=== PATIENT | male | born 1965 | race Two or more races ===

== ENCOUNTER 2016-09-21 15:59 | Emergency (ER) | payer MEDICAID ==
[~2016-09-21] VITALS: Ht 167.6 cm; Wt 59.0 kg
[~2016-09-21 15:59] MED LIST: ACETAMINOPHEN325 M1 ORAL; AMBIEN5 MG ORAL; ATIVAN1 MG ORAL; BENADRYL25 MG ORAL; BENADRYL50 MG ORAL; CLONIDINE0.1 MG ORAL; DULCOLAX10 MG RC; FOLIC ACID1 MG ORAL; HALOPERIDOL0.5 MG ORAL; HALOPERIDOL1 MG ORAL; HEPARIN1000 UNIT/ SUBQ; ISOPTO CARPINE BOTH EYES; KEPPRA1000 MG ORAL; KEPPRA500 M4 ORAL; KEPPRA500 MG ORAL; LEXAPRO20 MG ORAL; MILK OF MA400 MG/51 ORAL; MOM30 ML ORAL; MULTIVITAMINS1 EAC2 ORAL; MYLANTA II30 ML GT; NEXIUM20 M1 ORAL; POLYETHYLENE GL17 GM ORAL; PROTONIX40 MG ORAL; RANITIDINE HCL150 MG ORAL; RESTORIL15 MG ORAL; RISPERDAL0.25 MG ORAL; RISPERDAL2 MG ORAL; RISPERIDONE0.5 MG PO; TYLENOL650 MG/20. ORAL; UNOBMED; VITAMIN B-1100 MG ORAL
[2016-09-21] MEDS ORDERED: LORazepam 1mg tab ORAL ONE (16:15)
[2016-09-21 16:27] VITALS: BP 139/70
[2016-09-21 16:29] LABS: BASOPHILS % (AUTO) 0.9 % (0.0-2.0); EOSINOPHILS % (AUTO) 0.2 % (0.0-3.0); LYMPHOCYTES % (AUTO) 13.8 % (20.0-45.0); MEAN CORPUSCULAR HEMOGLOBIN 31.5 PG (27.0-31.0); MEAN CORPUSCULAR HGB CONC 37.4 G/DL (32.0-36.0); MEAN CORPUSCULAR VOLUME 84 FL (80-99); MEAN PLATELET VOLUME 8.1 FL (6.5-10.1); NEUTROPHILS % (AUTO) 80.2 % (45.0-75.0); PLATELET COUNT 197 K/UL (150-450); RED CELL DISTRIBUTION WIDTH 11.6 % (11.6-14.8); WHITE BLOOD COUNT 9.1 K/UL (4.8-10.8)
[2016-09-21] MEDS ORDERED: Midazolam 2mg/2ml Inj IVP ONE (16:45)
[2016-09-21 16:49] LABS: ANION GAP 18 (5-15); CALCIUM 9.1 mg/dL (8.6-10.2); CARBON DIOXIDE 23 mEQ/L (20-30); CHLORIDE 97 mEQ/L (98-107); CREATININE 0.8 mg/dL (0.7-1.2); GLOMERULAR FILTRATION RATE > 60 mL/min (>60); HEMOLYSIS 139; POTASSIUM 4.5 mEQ/L (3.4-4.9); SODIUM 138 mEQ/L (135-145)
[2016-09-21 17:57] VITALS: BP 139/70
--- NOTE | 2016-09-22 21:38 | Emergency Room Report ---
History of Present Illness General Chief Complaint: Seizure Source: Patient Present Illness HPI Patient presents from nursing facility with complaints of seizure disorder Patient has a history of seizures And had a seizure earlier today No reports of vomiting or diarrhea Unknown the compliance of medications Patient is afebrile upon presentation Patient has underlying dementia and eval mental delay Possible encephalopathy and history of present illness cannot be obtained from the patient Allergies: Coded Allergies: No Known Allergies (Unverified , 12/03/13) Patient History Limited by: medical condition Past Medical History: see triage record Pertinent Family History: unable to obtain Reviewed Nursing Documentation: PMH: Agreed, PSxH: Agreed Nursing Documentation-PMH Hx Cardiac Problems: No Hx Hypertension: No Hx Pacemaker: No Hx Asthma: No Hx COPD: No Hx Diabetes: No Hx Cancer: No Hx Gastrointestinal Problems: No Hx Dialysis: No History Of Psychiatric Problem: Yes - schizophrenia Hx Cerebrovascular Accident: No Hx Encephalitis: Yes Hx Seizures: Yes Hx Epilepsy: Yes Hx Memory Loss: Yes Hx Tremors: Yes Hx Weakness: Yes - GENERALIZED WEAKNESS Review of Systems All Other Systems: limited - Other than the ones mentioned in the history of present illness all others are reviewed however they do stay limited due to the patient's mental status Physical Exam Vital Signs Date Time Temp Pulse Resp B/P Pulse Ox O2 Delivery O2 Flow Rate FiO2 09/21/16 15:58 97.9 96 18 130/90 98 Room Air Sp02 EP Interpretation: reviewed, normal General Appearance: thin Head: normocephalic, atraumatic Eyes: bilateral eye EOMI, bilateral eye PERRL ENT: hearing grossly normal, normal pharynx, TMs + canals normal, uvula midline Neck: full range of motion, supple, no meningismus, no bony tend Respiratory: lungs clear, normal breath sounds, no rhonchi, no respiratory distress, no retraction, no accessory muscle use Cardiovascular #1: normal peripheral pulses, regular rate, rhythm, no edema, no gallop, no JVD, no murmur Gastrointestinal: normal bowel sounds, non tender, soft, no mass, no organomegaly, non-distended, no guarding, no hernia, no pulsatile mass, no rebound Musculoskeletal: normal inspection Neurologic: responsive - Responsive to physical stimuli moving all extremities no obvious focal deficit, sensory intact Psychiatric: mood/affect normal Skin: warm/dry, palpation normal Lymphatic: normal inspection, no adenopathy Medical Decision Making Diagnostic Impression: Primary Impression: seizure disorder ER Course Multiple differentials were considered Including but not limited to infection is, intracranial Multiple blood work was initiated all within normal limits Patient remained seizure free here In a stable for close outpatient nursing facility followup Labs Test 09/21/16 16:22 White Blood Count 9.1 K/UL (4.8-10.8) Red Blood Count 5.40 M/UL (4.70-6.10) Hemoglobin 17.0 G/DL (14.2-18.0) Hematocrit 45.5 % (42.0-52.0) Mean Corpuscular Volume 84 FL (80-99) Mean Corpuscular Hemoglobin 31.5 PG (27.0-31.0) Mean Corpuscular Hemoglobin Concent 37.4 G/DL (32.0-36.0) Red Cell Distribution Width 11.6 % (11.6-14.8) Platelet Count 197 K/UL (150-450) Mean Platelet Volume 8.1 FL (6.5-10.1) Neutrophils (%) (Auto) 80.2 % (45.0-75.0) Lymphocytes (%) (Auto) 13.8 % (20.0-45.0) Monocytes (%) (Auto) 5.0 % (1.0-10.0) Eosinophils (%) (Auto) 0.2 % (0.0-3.0) Basophils (%) (Auto) 0.9 % (0.0-2.0) Sodium Level 138 mEQ/L (135-145) Potassium Level 4.5 mEQ/L (3.4-4.9) Chloride Level 97 mEQ/L (98-107) Carbon Dioxide Level 23 mEQ/L (20-30) Anion Gap 18 (5-15) Blood Urea Nitrogen 15 mg/dL (7-23) Creatinine 0.8 mg/dL (0.7-1.2) Estimat Glomerular Filtration Rate > 60 mL/min (>60) Glucose Level 110 mg/dL (74-106) Calcium Level 9.1 mg/dL (8.6-10.2) Rhythm Strip Diag. Results EP Interpretation: yes Rate: 88 Rhythm: NSR, no PVC's, no ectopy Last Vital Signs Date Time Temp Pulse Resp B/P Pulse Ox O2 Delivery O2 Flow Rate FiO2 09/21/16 17:57 98.0 106 18 139/70 98 Room Air Status: improved Disposition: XFER SNF Condition: Improved Referrals: JESSICA VEGA (PCP) Additional Instructions: Patient is provided with the discharge instructions notified to follow up with primary doctor in the next 2-3 days otherwise return to the er with any worsening symptoms. Please note that this report is being documented using DRAGON technology. This can lead to erroneous entry secondary to incorrect interpretation by the dictating instrument. VINCE RODRÍGUEZ D.O. Sep 22, 2016 21:38
== END 2016-09-21 17:50 ==
LOC: EDBD 15:59 → EMR 16:09
DX: G40.909 Epilepsy, unspecified, not intractable, without status epilepticus (principal); G30.9 Alzheimer's disease, unspecified; F02.80 Dementia in other diseases classified elsewhere, unspecified severity, without behavioral disturbance, psychotic disturbance, mood disturbance, and anxiety; R53.1 Weakness; F20.9 Schizophrenia, unspecified
CPT/HCPCS: 36415; 80048; 80299; 85025; 96374; 96375; 99284; J2250; J7040

== ENCOUNTER 2016-10-28 12:11 | Emergency (ER) | payer MEDICAID ==
[~2016-10-28] VITALS: Ht 167.6 cm; Wt 68.0 kg
[2016-10-28 12:17] VITALS: BP 109/71
[2016-10-28] MEDS ORDERED: LORazepam Inj 2mg/ml 1ml ONE (13:06)
[2016-10-28] MEDS ORDERED: LORazepam Inj 2mg/ml 1ml IV ONE ×2 (13:15→14:00)
[2016-10-28 13:23] LABS: BASOPHILS % (AUTO) 1.2 % (0.0-2.0); EOSINOPHILS % (AUTO) 0.8 % (0.0-3.0); LYMPHOCYTES % (AUTO) 29.2 % (20.0-45.0); MEAN CORPUSCULAR HEMOGLOBIN 29.5 PG (27.0-31.0); MEAN CORPUSCULAR HGB CONC 34.8 G/DL (32.0-36.0); MEAN CORPUSCULAR VOLUME 85 FL (80-99); MEAN PLATELET VOLUME 7.6 FL (6.5-10.1); MONOCYTES % (AUTO) 5.1 % (1.0-10.0); NEUTROPHILS % (AUTO) 63.7 % (45.0-75.0); PLATELET COUNT 195 K/UL (150-450); RED BLOOD COUNT 5.63 M/UL (4.70-6.10); RED CELL DISTRIBUTION WIDTH 11.5 % (11.6-14.8); WHITE BLOOD COUNT 7.3 K/UL (4.8-10.8)
[2016-10-28 13:24] LABS: ALANINE AMINOTRANSFERASE 8 U/L (3-41); ALBUMIN/GLOBULIN RATIO 1.4 (1.0-2.7); ANION GAP 16 (5-15); ASPARTATE AMINO TRANSFERASE 15 U/L (5-40); CALCIUM 9.3 mg/dL (8.6-10.2); CARBON DIOXIDE 23 mEQ/L (20-30); CHLORIDE 100 mEQ/L (98-107); CREATININE 0.8 mg/dL (0.7-1.2); GLOMERULAR FILTRATION RATE > 60 mL/min (>60); HEMOLYSIS 22; POTASSIUM 4.3 mEQ/L (3.4-4.9); SODIUM 139 mEQ/L (135-145); TOTAL PROTEIN 7.3 g/dL (6.6-8.7)
[2016-10-28 13:45] VITALS: BP 103/61
[2016-10-28] MEDS ORDERED: Haloperidol 5mg/ml Inj ONE (14:20)
[2016-10-28] MEDS ORDERED: Haloperidol 5mg/ml Inj IM ONE (14:30)
[2016-10-28] MEDS ORDERED: Cogentin ORAL (14:51)
[2016-10-28] MEDS: DiphenhydrAMINE 50mg/ml Inj IVP ONE ×2 (14:56→14:58)
[2016-10-28] MEDS ORDERED: DiphenhydrAMINE 50mg/ml Inj IVP ONE (15:15)
[2016-10-28] MEDS ORDERED: Midazolam 2mg/2ml Inj IVP ONE (15:30)
[2016-10-28] MEDS ORDERED: Flumazenil 0.1mg/ml 5ml Inj IV ONE (15:34)
--- NOTE | 2016-10-28 16:39 | Diagnostic Imaging Report ---
Indications: Altered metal status and seizures Technique: Spiral acquisitions obtained through the brain. Angled axial and coronal 5 x 5 mm slices were reconstructed. Total dose length product 1608 mGycm. CTDI vol(s) 70 mGy. Dose reduction achieved using automated exposure control Comparison: 03/28/2016 Findings: Again demonstrated is a parenchymal calcification in the parasagittal posterior right parietal lobe. No acute hemorrhage or edema. No mass effect or midline shift. Normal martinez-white differentiation. Normal size ventricles and extra-axial CSF spaces. Visualized orbits and sinuses are unremarkable. Intact calvarium. Small left middle fossa arachnoid cyst again demonstrated, unchanged. Previously demonstrated posterior scalp hematoma has largely resolved. No other significant interim change. 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
[2016-10-28 16:53] VITALS: BP 124/77
[2016-10-28] MEDS ORDERED: Bacitracin Oint UD TOPIC ONE (17:00)
[2016-10-28 18:48] VITALS: BP 118/70
--- NOTE | 2016-10-28 21:34 | Emergency Room Report ---
History of Present Illness General Chief Complaint: Multiple Trauma/Fall Source: EMS Present Illness HPI The patient is a 50-year-old male with a history of seizure disorder and encephalopathy brought in by ambulance from nursing facility for fall. The patient was found on the floor, conscious, with blood to the back of the head. The patient is unsure of what happened and is unable to provide a reliable history. No seizure was witnessed. Allergies: Coded Allergies: No Known Allergies (Unverified , 12/03/13) Patient History Past Medical History: see triage record Pertinent Family History: none Reviewed Nursing Documentation: PMH: Agreed, PSxH: Agreed Nursing Documentation-PMH Hx Cardiac Problems: No Hx Hypertension: No Hx Pacemaker: No Hx Asthma: No Hx COPD: No Hx Diabetes: No Hx Cancer: No Hx Gastrointestinal Problems: No Hx Dialysis: No Hx Cerebrovascular Accident: No Hx Encephalitis: Yes Hx Seizures: Yes Hx Epilepsy: Yes Hx Memory Loss: Yes Hx Tremors: Yes Hx Weakness: Yes - GENERALIZED WEAKNESS Review of Systems All Other Systems: limited Physical Exam Vital Signs Date Time Temp Pulse Resp B/P Pulse Ox O2 Delivery O2 Flow Rate FiO2 10/28/16 12:04 98.4 82 16 109/71 96 Room Air Sp02 EP Interpretation: reviewed, normal General Appearance: no apparent distress, alert, GCS 15, non-toxic Head: normocephalic, other - < 1cm laceration to posterior scalp Eyes: bilateral eye PERRL, bilateral eye normal inspection ENT: hearing grossly normal, normal pharynx, no angioedema, normal voice Neck: full range of motion, supple/symm/no masses Respiratory: chest non-tender, lungs clear, normal breath sounds Cardiovascular #1: regular rate, rhythm, no edema Musculoskeletal: normal inspection, normal range of motion Neurologic: alert, responsive, sensory intact Skin: normal color, no rash, warm/dry, well hydrated Lymphatic: no adenopathy Medical Decision Making PA Attestation Dr. Lynn is my supervising physician. Patient management was discussed with my supervising physician Diagnostic Impression: Primary Impression: Scalp contusion Additional Impression: Scalp laceration Qualified Codes: S01.01XA - Laceration without foreign body of scalp, initial encounter ER Course The patient is a 50-year-old male with a history of seizure disorder and encephalopathy for fall Differential diagnoses considered but not limited to: Contusion, laceration, fracture, intracranial hemorrhage, seizure, hypoglycemia, among others Physical exam: Vitals within normal limits. No apparent distress The patient is alert and follows commands somewhat. There is a less than 1 cm laceration to posterior scalp with bleeding. No depression. The patient is very active and continues to move all limbs and head without correction. Blood work is unremarkable. The patient is given medication to help decrease movement. CT of head is unremarkable for acute findings Wound was cleaned with normal saline and Betadine. Bacitracin was applied with sterile dressing He'll be discharged back to nursing facility. This was discussed with his primary doctor Laboratory Tests Test 10/28/16 12:38 10/28/16 12:55 Urine Opiates Screen Negative (NEGATIVE) Urine Barbiturates Screen Negative (NEGATIVE) Phencyclidine (PCP) Screen Negative (NEGATIVE) Urine Amphetamines Screen Negative (NEGATIVE) Urine Benzodiazepines Screen Negative (NEGATIVE) Urine Cocaine Screen Negative (NEGATIVE) Urine Marijuana (THC) Screen Negative (NEGATIVE) White Blood Count 7.3 K/UL (4.8-10.8) Red Blood Count 5.63 M/UL (4.70-6.10) Hemoglobin 16.6 G/DL (14.2-18.0) Hematocrit 47.7 % (42.0-52.0) Mean Corpuscular Volume 85 FL (80-99) Mean Corpuscular Hemoglobin 29.5 PG (27.0-31.0) Mean Corpuscular Hemoglobin Concent 34.8 G/DL (32.0-36.0) Red Cell Distribution Width 11.5 % (11.6-14.8) L Platelet Count 195 K/UL (150-450) Mean Platelet Volume 7.6 FL (6.5-10.1) Neutrophils (%) (Auto) 63.7 % (45.0-75.0) Lymphocytes (%) (Auto) 29.2 % (20.0-45.0) Monocytes (%) (Auto) 5.1 % (1.0-10.0) Eosinophils (%) (Auto) 0.8 % (0.0-3.0) Basophils (%) (Auto) 1.2 % (0.0-2.0) Sodium Level 139 mEQ/L (135-145) Potassium Level 4.3 mEQ/L (3.4-4.9) Chloride Level 100 mEQ/L (98-107) Carbon Dioxide Level 23 mEQ/L (20-30) Anion Gap 16 (5-15) H Blood Urea Nitrogen 18 mg/dL (7-23) Creatinine 0.8 mg/dL (0.7-1.2) Estimate Glomerular Filtration Rate > 60 mL/min (>60) Glucose Level 95 mg/dL (74-106) Calcium Level 9.3 mg/dL (8.6-10.2) Total Bilirubin 0.5 mg/dL (0.0-1.2) Aspartate Amino Transferase (AST) 15 U/L (5-40) Alanine Aminotransferase (ALT) 8 U/L (3-41) Alkaline Phosphatase 72 U/L (40-129) Total Protein 7.3 g/dL (6.6-8.7) Albumin 4.3 g/dL (3.5-5.2) Globulin 3.0 g/dL Albumin/Globulin Ratio 1.4 (1.0-2.7) Levetiracetam Level Pending Lab Results Impression CBC, CMP, UDS unremarkable EKG Diagnostic Results Rate: normal - 72 Rhythm: NSR ST Segments: no acute changes PA Scribe Text EKG was reviewed and read with my supervising physician. No acute ST segment changes are seen. Normal rate and rhythm. No acute changes. CT/MRI/US Diagnostic Results CT/MRI/US Diagnostic Results : Imaging Test Ordered: CT head Impression unremarkable Last Vital Signs Date Time Temp Pulse Resp B/P Pulse Ox O2 Delivery O2 Flow Rate FiO2 10/28/16 18:48 82 20 118/70 99 Room Air 10/28/16 16:53 96.5 Status: improved Disposition: [facility] SN[facility] Condition: Stable Patient Instructions: Facial or Scalp Contusion Additional Instructions: I discussed my findings with the patient. All questions and concerns have been answered. Treatment and medication compliance have been addressed. I advised the patient that they need to follow up with primary doctor as soon as possible. Return to ED if symptoms worsen, new symptoms arise, or if needed for any reason. Patient verbalized understanding of discharge instructions. CATHY GARCIA October 28, 2016 21:34
== END 2016-10-28 19:01 ==
LOC: EDBD 12:11 → EMR 12:55
DX: S01.02XA Laceration with foreign body of scalp, initial encounter (principal); W19.XXXA Unspecified fall, initial encounter; Y92.129 Unspecified place in nursing home as the place of occurrence of the external cause; R53.1 Weakness; R41.82 Altered mental status, unspecified; G93.0 Cerebral cysts; Z86.69 Personal history of other diseases of the nervous system and sense organs
CPT/HCPCS: 36415; 70450; 80053; 80299; 80300; 85025; 93005; 96360; 96361; 96372; 96374; 96375; 99284; J1200; J1630; J2250

== ENCOUNTER 2019-11-11 15:47 | Emergency (ER) | payer MEDICAID ==
[~2019-11-11] VITALS: Ht 172.7 cm; Wt 59.0 kg
[~2019-11-11 15:47] MED LIST changes: +Cogentin ORAL
[2019-11-11] MEDS ORDERED: ACETAMINOPHEN500 M3 ORAL (15:52)
[2019-11-11] MEDS ORDERED: HALOPERIDOL2 MG PO (15:52)
[2019-11-11] MEDS ORDERED: KEPPRA750 MG ORAL (15:52)
--- NOTE | 2019-11-11 16:00 | Emergency Room Report ---
History of Present Illness General Chief Complaint: Multiple Trauma/Fall Source: Medical Record Present Illness HPI 53-year-old male presents to the emergency department brought by ambulance from senior living facility for unwitnessed fall out of his wheelchair. Patient has some visible trauma to the head. Patient has a history of seizure disorder as well as dementia and has a baseline mental status of being altered. History and ROS are limited due to patient's chronic alteration in mental status. This information was gathered from attending funding specialist as well as senior living facility documentation that was sent with the patient. Patient does not appear to be on any blood thinners. 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 MACHINE OPERATOR: No Patient History Past Medical History: see triage record, HTN, dementia, seizures Past Surgical History: none Pertinent Family History: none Reviewed Nursing Documentation: PMH: Agreed; PSxH: Agreed Nursing Documentation-PMH Hx Cardiac Problems: No Hx Hypertension: No Hx Pacemaker: No Hx Asthma: No Hx COPD: Yes Hx Diabetes: No Hx Cancer: No Hx Gastrointestinal Problems: Yes Hx Dialysis: No History Of Psychiatric Problem: Yes - dementia Hx Cerebrovascular Accident: No Hx Encephalitis: Yes Hx Seizures: Yes Hx Epilepsy: Yes Hx Memory Loss: Yes Hx Tremors: Yes Hx Weakness: Yes - GENERALIZED WEAKNESS Review of Systems All Other Systems: limited - PT. has altered baseline mental status. Physical Exam Vital Signs Date Time Temp Pulse Resp B/P (MAP) Pulse Ox O2 Delivery O2 Flow Rate FiO2 11/11/19 15:37 98.2 108 20 98 Room Air Sp02 EP Interpretation: reviewed, normal General Appearance: no apparent distress, thin, Chronically Ill Head: normocephalic, other - palpable and visible Eyes: bilateral eye normal inspection, bilateral eye PERRL ENT: other - no oral trauma Neck: full range of motion, no bony tend - pt. does not grimmace or pull away with c-spine palpation. noted to have FROM. Respiratory: lungs clear, normal breath sounds, no respiratory distress, no accessory muscle use, no wheezing, speaking full sentences Cardiovascular #1: regular rate, rhythm Genitourinary: other - no obvious incontinence Musculoskeletal: normal range of motion, moves extm spontaneously, non-tender Neurologic: alert, motor strength/tone normal, responsive - will look toward speaker. not verbal, does not follow commands Skin: abrasion - right frontal area of scalp. , other - hematoma to the right frontal area of the scalp. Medical Decision Making PA Attestation Dr. Leggett Is my supervising Physician whom patient management has been discussed with. Diagnostic Impression: Primary Impression: Traumatic hematoma of scalp Qualified Codes: S00.03XA - Contusion of scalp, initial encounter Additional Impression: Scalp abrasion Qualified Codes: S00.01XA - Abrasion of scalp, initial encounter ER Course 53-year-old male presents to the emergency department brought by ambulance from senior living facility for unwitnessed fall out of his wheelchair. Patient has some visible trauma to the head. Patient has a history of seizure disorder as well as dementia and has a baseline mental status of being altered. History and ROS are limited due to patient's chronic alteration in mental status. This information was gathered from attending funding specialist as well as senior living facility documentation that was sent with the patient. Patient does not appear to be on any blood thinners. Ddx considered but are not limited to Fracture, dislocation, contusion, concussion Sprain/Strain/Spasm, hematoma, subdural hematoma, intracranial bleed , seizure just to name a few. Vital signs: are WNL, pt. is afebrile H&PE are most consistent with chronically demented patient that sustained head injury today requiring evaluation. No identifiable focal neurological deficit, no loss of consciousness. ORDERS: -CT head NO contrast: ED INTERVENTIONS: DISCHARGE: At this time pt. is stable for d/c back to SNF. Will provide printed patient care instructions, and any necessary prescriptions. Nursing staff to coordinate transportation. CT/MRI/US Diagnostic Results CT/MRI/US Diagnostic Results : Imaging Test Ordered: CT Head Impression "No evidence of acute fracture, hemorrhage, or intracranial process" --per official radiology report- Please see report for specific details. Last Vital Signs Date Time Temp Pulse Resp B/P (MAP) Pulse Ox O2 Delivery O2 Flow Rate FiO2 11/11/19 15:37 98.2 108 20 98 Room Air Status: unchanged Disposition: SNF Condition: Stable Patient Instructions: Abrasion, [id number], Head Injury, Adult, [id number] Additional Instructions: Take medications as directed. Follow up with a Primary Care Provider in 3-5 days, even if your symptoms have resolved. Return sooner to ED if new symptoms occur, or current symptoms become worse. - Please note that this Emergency Department Report was dictated using [employer]tim[employer] spotter technology software, occasionally this can lead to erroneous entry secondary to interpretation by the dictation equipment. Tori Moreno Nov 11, 2019 16:00
--- NOTE | 2019-11-11 16:35 | Diagnostic Imaging Report ---
EXAM: CT Head Without Intravenous Contrast CLINICAL HISTORY: PAIN TECHNIQUE: Axial computed tomography images of the head/brain without intravenous contrast. CTDI is 53 mGy and DLP is 1019 mGy-cm. One or more of the following dose reduction techniques were used: automated exposure control, adjustment of the mA and/or kV according to patient size, use of iterative reconstruction technique. COMPARISON: 10/28/2016 FINDINGS: Brain: No hemorrhage, extra-axial fluid collection, mass effect, or edema. Ventricles: Unremarkable. Bones/joints: Unremarkable. Soft tissues: Right frontal scalp edema. Sinuses: Unremarkable as visualized. Mastoid air cells: Unremarkable as visualized. IMPRESSION: No acute intracranial abnormality.
[2019-11-11 17:44] VITALS: BP 125/67
[2019-11-11 19:10] VITALS: BP 120/67
[2019-11-11] MEDS ORDERED: LORazepam Inj 2mg/ml 1ml IM ONE (19:30)
== END 2019-11-11 19:26 ==
LOC: EDBD 15:47 → EMR 16:07
DX: S00.03XA Contusion of scalp, initial encounter (principal); S00.01XA Abrasion of scalp, initial encounter; W05.0XXA Fall from non-moving wheelchair, initial encounter; Y92.129 Unspecified place in nursing home as the place of occurrence of the external cause; I10 Essential (primary) hypertension; F03.90 Unspecified dementia, unspecified severity, without behavioral disturbance, psychotic disturbance, mood disturbance, and anxiety; G40.909 Epilepsy, unspecified, not intractable, without status epilepticus
CPT/HCPCS: 70450; 96372; Z7502; 99284